=== PATIENT | female | born 1995 | race Caucasian/White ===

== ENCOUNTER 2017-09-17 22:53 | Emergency (ER) | payer OTHER ==
[~2017-09-17] VITALS: Ht 152.4 cm; Wt 70.5 kg
[~2017-09-17 22:53] MED LIST: IBUP-2071 PO
[2017-09-18 00:16] VITALS: BP 124/72
== END 2017-09-18 00:27 | disposition home or self-care (01) ==
LOC: EMS 22:54
DX: L89.309 Pressure ulcer of unspecified buttock, unspecified stage (principal)
CPT/HCPCS: 99281

== ENCOUNTER 2018-06-08 19:33 | Emergency (ER) | payer MEDICAID, OTHER ==
[~2018-06-08] VITALS: Ht 162.6 cm; Wt 50.0 kg
[2018-06-08 21:35] VITALS: BP 125/71
[2018-06-08] MEDS ORDERED: KETOROLAC TROMETHAMINE 30 MG/ML VIAL IM ONE (21:45)
[2018-06-08] MEDS ORDERED: PENICILLIN V POTASSIUM 500 MG TABLET PO ONE (21:45)
== END 2018-06-08 22:02 | disposition home or self-care (01) ==
LOC: EMS 19:34
DX: K08.89 Other specified disorders of teeth and supporting structures (principal); R22.0 Localized swelling, mass and lump, head; F17.210 Nicotine dependence, cigarettes, uncomplicated
CPT/HCPCS: 96372; 99283; 99406; J1885

== ENCOUNTER 2019-07-04 02:36 | Emergency (ER) | payer MEDICAID ==
[~2019-07-04] VITALS: Ht 162.6 cm; Wt 82.0 kg
[2019-07-04] MEDS ORDERED: [UNRECOGNIZED DRUG - OTHER] PO (02:42)
[2019-07-04] MEDS ORDERED: TETRACAINE HCL/PF 0.5% 4 ML OPHTHALMIC SOLUTION OU ONE (03:30)
[2019-07-04 04:00] VITALS: BP 124/70
== END 2019-07-04 04:09 | disposition home or self-care (01) ==
LOC: EMS 02:37
DX: H57.89 Other specified disorders of eye and adnexa (principal); F17.210 Nicotine dependence, cigarettes, uncomplicated

== ENCOUNTER 2019-07-30 01:23 | Emergency (ER) | payer SELFPAY ==
[~2019-07-30] VITALS: Ht 170.2 cm; Wt 81.8 kg
[~2019-07-30 01:23] MED LIST changes: -IBUP-2071 PO; +[UNRECOGNIZED DRUG - OTHER] PO
[2019-07-30] MEDS ORDERED: PROPARACAINE HCL 0.5% 15 ML OPHTHALMIC SOLUTION OU ONE (02:45)
[2019-07-30] MEDS ORDERED: FLUORESCEIN SODIUM 1 MG STRIP OD ONE (02:45)
[2019-07-30 03:00] VITALS: BP 131/77
[2019-07-30] MEDS ORDERED: MOXIFLOXACIN HCL 0.5% 3 ML OPHTHALMIC SOLUTION OS ONE (03:15)
[2019-07-30] MEDS ORDERED: IBUPROFEN 600 MG TABLET PO ONE (03:15)
== END 2019-07-30 03:30 | disposition home or self-care (01) ==
LOC: EMS 01:23
DX: S05.02XA Injury of conjunctiva and corneal abrasion without foreign body, left eye, initial encounter (principal); X58.XXXA Exposure to other specified factors, initial encounter; Y93.89 Activity, other specified; Y92.89 Other specified places as the place of occurrence of the external cause; Y99.8 Other external cause status

== ENCOUNTER 2020-05-01 18:59 | Emergency (ER) | payer OTHER ==
[~2020-05-01] VITALS: Ht 157.5 cm; Wt 86.4 kg
[2020-05-01 22:02] LABS: COVID AG,FIA SOURCE NASAL SWAB
[2020-05-01 23:31] VITALS: BP 118/78
== END 2020-05-01 23:39 | disposition home or self-care (01) ==
LOC: EMS 18:59
DX: U07.1 COVID-19 (principal); R09.81 Nasal congestion
CPT/HCPCS: 87426

== ENCOUNTER 2020-05-07 19:34 | Emergency (ER) | payer OTHER ==
[~2020-05-07] VITALS: Ht 157.5 cm; Wt 86.4 kg
[2020-05-07 20:40] LABS: COVID AG,FIA SOURCE NASOPHARYNGEAL
[2020-05-07 23:00] VITALS: BP 129/87
== END 2020-05-08 00:06 | disposition home or self-care (01) ==
LOC: EMS 19:34
DX: U07.1 COVID-19 (principal); R09.81 Nasal congestion
CPT/HCPCS: 87426; 99283; U0003

== ENCOUNTER 2020-05-12 17:45 | Emergency (ER) | payer OTHER ==
[~2020-05-12] VITALS: Ht 158.8 cm; Wt 86.4 kg
[2020-05-12] MEDS ORDERED: FLUORESCEIN SODIUM 1 MG STRIP OD ONE (19:15)
[2020-05-12 19:44] VITALS: BP 132/79
== END 2020-05-12 19:46 | disposition home or self-care (01) ==
LOC: EMS 17:45
DX: H10.9 Unspecified conjunctivitis (principal)

== ENCOUNTER 2021-05-12 12:42 | Emergency (ER) | payer OTHER ==
[~2021-05-12] VITALS: Ht 154.9 cm; Wt 86.4 kg
[2021-05-12 12:59] VITALS: BP 132/80
[2021-05-12 14:11] LABS: COVID AG,FIA SOURCE NASOPHARYNGEAL
== END 2021-05-12 14:30 | disposition home or self-care (01) ==
LOC: EMS 12:59
DX: U07.1 COVID-19 (principal)
CPT/HCPCS: 87426; 99283; U0003

== ENCOUNTER 2022-06-02 13:45 | Emergency (ER) | payer OTHER ==
[~2022-06-02] VITALS: Ht 157.5 cm; Wt 68.0 kg
[2022-06-02] MEDS ORDERED: ACETAMINOPHEN 500 MG TABLET PO ONE (14:00)
[2022-06-02 14:25] LABS: COVID AG,FIA SOURCE NASAL SWAB
[2022-06-02 14:37] VITALS: BP 115/76
[2022-06-02 14:38] LABS: RAPID GROUP A STREP NEGATIVE (NEGATIVE)
[2022-06-02] MEDS ORDERED: IBUPROFEN 600 MG TABLET PO ONE (14:45)
[2022-06-02 14:47] LABS: INFLUENZA TYPE A NEGATIVE FOR TYPE A (NEGATIVE); INFLUENZA TYPE B NEGATIVE FOR TYPE B (NEGATIVE)
[2022-06-02] MEDS ORDERED: ACET-66 PO (14:52)
[2022-06-02] MEDS ORDERED: IBUP-1554 PO (14:52)
[2022-06-02] MEDS ORDERED: GUAIFDM PO (14:52)
== END 2022-06-02 15:08 | disposition home or self-care (01) ==
LOC: EMS 13:47
DX: R06.9 Unspecified abnormalities of breathing (principal); Z20.822 Contact with and (suspected) exposure to COVID-19
CPT/HCPCS: 87430; 87804; 99283

== ENCOUNTER 2022-08-04 01:16 | Emergency (ER) | payer OTHER ==
[~2022-08-04] VITALS: Ht 154.9 cm; Wt 77.3 kg
[~2022-08-04 01:16] MED LIST changes: +ACET-66 PO; +GUAIFDM PO; +IBUP-1554 PO; -[UNRECOGNIZED DRUG - OTHER] PO
[2022-08-04 01:30] VITALS: BP 116/76
[2022-08-04] MEDS ORDERED: DEXAMETHASONE SOD PHOS 4 MG/ML 5 ML VIAL IVP ONE (03:00)
[2022-08-04] MEDS ORDERED: LORazepam 1 MG TABLET PO ONE (03:00)
[2022-08-04] MEDS ORDERED: KETOROLAC TROMETHAMINE 30 MG/ML VIAL IVP ONE (03:00)
[2022-08-04 03:41] LABS: APPEARANCE,URINE HAZY (CLEAR); BILIRUBIN,URINE NEGATIVE (NEGATIVE); GLUCOSE, URINE (UA) NEGATIVE (NEGATIVE); KETONES,URINE NEGATIVE (NEGATIVE); LEUKOCYTE ESTERASE ,URINE LARGE (NEGATIVE); NITRATE,URINE NEGATIVE (NEGATIVE); OCCULT BLOOD,URINE TRACE (NEGATIVE); PH,URINE 7.5 (5.0-8.0); PROTEIN,URINE 30-70 mg/dL (NEGATIVE)
[2022-08-04 03:46] LABS: BACTERIA,URINE Moderate /HPF (None Seen); RBC,URINE 0-2 /HPF (0-2); SQUAMOUS EPITHELIAL CELL,UR Few /LPF (None Seen); WBC,URINE 26-50 /HPF (0-5)
[2022-08-04] MEDS ORDERED: CEPHALEXIN MONOHYDRATE 500 MG CAPSULE PO ONE (04:15)
== END 2022-08-04 04:46 | disposition home or self-care (01) ==
LOC: EMS 01:18
DX: G43.909 Migraine, unspecified, not intractable, without status migrainosus (principal); N39.0 Urinary tract infection, site not specified; J45.909 Unspecified asthma, uncomplicated
CPT/HCPCS: 99284; 96374; 96375; 81001; 87086; 87186; J1100; J1885

== ENCOUNTER 2022-09-03 11:02 | Emergency (ER) | payer OTHER ==
[~2022-09-03] VITALS: Ht 167.6 cm; Wt 61.4 kg
[2022-09-03 11:05] VITALS: BP 122/83
== END 2022-09-03 11:58 | disposition home or self-care (01) ==
LOC: EMS 11:05
DX: L03.317 Cellulitis of buttock (principal); G43.909 Migraine, unspecified, not intractable, without status migrainosus; J45.909 Unspecified asthma, uncomplicated; Z32.01 Encounter for pregnancy test, result positive
CPT/HCPCS: 99281; Z7502

== ENCOUNTER 2022-10-28 22:30 | Emergency (ER) | payer OTHER ==
[~2022-10-28] VITALS: Ht 157.5 cm; Wt 77.3 kg
[2022-10-28 22:42] VITALS: TEMP 98.3
[2022-10-28 22:55] LABS: APPEARANCE,URINE CLEAR (CLEAR); BILIRUBIN,URINE NEGATIVE (NEGATIVE); GLUCOSE, URINE (UA) NEGATIVE (NEGATIVE); KETONES,URINE NEGATIVE (NEGATIVE); LEUKOCYTE ESTERASE ,URINE SMALL (NEGATIVE); NITRATE,URINE NEGATIVE (NEGATIVE); OCCULT BLOOD,URINE NEGATIVE (NEGATIVE); PROTEIN,URINE NEGATIVE (NEGATIVE); SPECIFIC GRAVITIY, URINE 1.009 (1.003-1.030); UROBILINOGEN,URINE <=1.0 mg/dL (<=1.0)
[2022-10-28] MEDS ORDERED: ACETAMINOPHEN 325 MG TABLET PO ONE (23:00)
[2022-10-28 23:09] LABS: BACTERIA,URINE Rare /HPF (None Seen); RBC,URINE None Seen /HPF (0-2); SQUAMOUS EPITHELIAL CELL,UR Few /LPF (None Seen)
[2022-10-29] MEDS ORDERED: CEPHALEXIN MONOHYDRATE 500 MG CAPSULE PO ONE (01:15)
[2022-10-29 01:25] VITALS: BP 124/86; PULSE 82; RESP 16
== END 2022-10-29 01:30 | disposition home or self-care (01) ==
LOC: EMS 22:32
DX: O23.41 Unspecified infection of urinary tract in pregnancy, first trimester (principal); N39.0 Urinary tract infection, site not specified; M54.50 Low back pain, unspecified; R07.89 Other chest pain; J45.909 Unspecified asthma, uncomplicated; G43.909 Migraine, unspecified, not intractable, without status migrainosus; Z98.890 Other specified postprocedural states; Z3A.13 13 weeks gestation of pregnancy
CPT/HCPCS: 76801; 76817; 81001; 99284; Z7502; Z7610

== ENCOUNTER 2022-11-12 22:03 | Emergency (ER) | payer OTHER ==
[~2022-11-12] VITALS: Ht 154.9 cm; Wt 72.0 kg
[2022-11-12 22:08] VITALS: BP 115/70; PULSE 94; RESP 16; TEMP 98.1
[2022-11-12] MEDS ORDERED: ONDA-104 PO (23:03)
[2022-11-12] MEDS ORDERED: ONDANSETRON HCL 4 MG/2 ML VIAL IVP ONE (23:15)
[2022-11-12] MEDS ORDERED: ACETAMINOPHEN 1000 MG/ISO-OSM 100 ML IV ONE (23:15)
[2022-11-12] MEDS ORDERED: SODIUM CHLORIDE 0.9% 1,000 ML IV ONE (23:15)
== END 2022-11-13 01:20 | disposition home or self-care (01) ==
LOC: EMS 23:01
DX: O26.892 Other specified pregnancy related conditions, second trimester (principal); G43.909 Migraine, unspecified, not intractable, without status migrainosus; J45.909 Unspecified asthma, uncomplicated; Z98.890 Other specified postprocedural states; Z3A.14 14 weeks gestation of pregnancy
CPT/HCPCS: 99284; 96365; 96375; J2405; J7030; J0131

== ENCOUNTER 2022-12-31 00:31 | Emergency (ER) | payer OTHER ==
[~2022-12-31] VITALS: Ht 154.9 cm; Wt 95.0 kg
[~2022-12-31 00:31] MED LIST changes: +ONDA-104 PO
[2022-12-31 00:54] VITALS: TEMP 98.4
[2022-12-31] MEDS ORDERED: ONDANSETRON HCL 4 MG/2 ML VIAL IVP ONE (01:45)
[2022-12-31] MEDS ORDERED: ACETAMINOPHEN 1000 MG/ISO-OSM 100 ML IV ONE (01:45)
[2022-12-31] MEDS ORDERED: SODIUM CHLORIDE 0.9% 1,000 ML IV ONE (01:45)
[2022-12-31] MEDS ORDERED: SUMA100T21 PO (01:50)
[2022-12-31 02:12] LABS: APPEARANCE,URINE HAZY (CLEAR); BILIRUBIN,URINE NEGATIVE (NEGATIVE); GLUCOSE, URINE (UA) NEGATIVE (NEGATIVE); KETONES,URINE NEGATIVE (NEGATIVE); LEUKOCYTE ESTERASE ,URINE LARGE (NEGATIVE); NITRATE,URINE POSITIVE (NEGATIVE); OCCULT BLOOD,URINE LARGE (NEGATIVE); PH,URINE 6.5 (5.0-8.0); PROTEIN,URINE TRACE mg/dL (NEGATIVE); SPECIFIC GRAVITIY, URINE 1.013 (1.003-1.030); UROBILINOGEN,URINE <=1.0 mg/dL (<=1.0)
[2022-12-31] MEDS ORDERED: CEPH-558 PO (02:19)
[2022-12-31 02:26] LABS: BACTERIA,URINE Many /HPF (None Seen); SQUAMOUS EPITHELIAL CELL,UR Many /LPF (None Seen); WBC,URINE 26-50 /HPF (0-5)
[2022-12-31] MEDS ORDERED: CEPHALEXIN MONOHYDRATE 500 MG CAPSULE PO ONE (02:30)
[2022-12-31 03:00] VITALS: BP 125/83; PULSE 90; RESP 18
== END 2022-12-31 03:01 | disposition home or self-care (01) ==
LOC: EMS 00:32
DX: O26.892 Other specified pregnancy related conditions, second trimester (principal); G43.909 Migraine, unspecified, not intractable, without status migrainosus; J45.909 Unspecified asthma, uncomplicated; Z98.890 Other specified postprocedural states
CPT/HCPCS: 99284; 96365; 96375; 81001; 87086; 87186; J2405; J0131

== ENCOUNTER 2023-02-03 00:30 | Emergency (ER) | payer OTHER ==
[~2023-02-03] VITALS: Ht 157.5 cm; Wt 89.0 kg
[~2023-02-03 00:30] MED LIST changes: +CEPH-558 PO; +SUMA100T21 PO
[2023-02-03] MEDS ORDERED: ONDANSETRON HCL 4 MG/2 ML VIAL IVP ONE (02:15)
[2023-02-03] MEDS ORDERED: ACETAMINOPHEN 500 MG/ISO-OSM 50 ML IV ONE (02:15)
[2023-02-03] MEDS ORDERED: SODIUM CHLORIDE 0.9% 1,000 ML IV ONE (02:15)
[2023-02-03 03:38] VITALS: BP 124/68; PULSE 71; RESP 17; TEMP 97.3
== END 2023-02-03 03:48 | disposition home or self-care (01) ==
LOC: EMS 00:32
DX: O26.892 Other specified pregnancy related conditions, second trimester (principal); G43.909 Migraine, unspecified, not intractable, without status migrainosus; J45.909 Unspecified asthma, uncomplicated; Z98.890 Other specified postprocedural states; Z3A.00 Weeks of gestation of pregnancy not specified
CPT/HCPCS: 99284; 96365; 96375; J2405; J7030; J0131

== ENCOUNTER 2023-02-20 20:20 | Emergency (ER) | payer OTHER ==
[~2023-02-20] VITALS: Ht 154.9 cm; Wt 95.0 kg
[2023-02-20 21:03] VITALS: TEMP 98
[2023-02-20] MEDS ORDERED: SODIUM CHLORIDE 0.9% 1,000 ML IV ONE (21:30)
[2023-02-20 22:04] LABS: BASOPHILS % (AUTO) 0.3 % (0.0-2.0); HEMATOCRIT 31.7 % (36-46); HEMOGLOBIN 11.2 g/dL (12.0-16.0); LYMPHOCYTES # (AUTO) 3.1 K/uL (1.0-4.8); LYMPHOCYTES % (AUTO) 25.8 % (22.0-44.0); MEAN CORPUSCULAR HEMOGLOBIN 32.4 pg (26.0-34.0); MEAN CORPUSCULAR HGB CONC 35.3 G/dL (31.0-37.0); MEAN CORPUSCULAR VOLUME 92 fL (80-100); MONOCYTES # (AUTO) 0.6 K/uL (0.1-1.0); MONOCYTES % (AUTO) 5.2 % (2.0-9.0); NEUTROPHILS # (AUTO) 8.2 K/uL (1.8-7.7); NEUTROPHILS % (AUTO) 67.7 % (40.0-70.0); PLATELET COUNT (AUTO) 320 K/uL (150-450); RED BLOOD CELL COUNT(AUTO) 3.45 MIL/uL (4.00-5.20); RED CELL DISTRIBUTION WIDTH 13.3 % (11.5-14.5); WHITE BLOOD COUNT (AUTO) 12.1 K/uL (4.5-11.0)
[2023-02-20 22:15] LABS: ANION GAP 11 mmol/L (8-16); CALCIUM, TOTAL 8.4 mg/dL (8.8-10.5); CARBON DIOXIDE 21 mmol/L (22-29); CHLORIDE 102 mmol/L (98-107); CREATININE 0.51 mg/dL (0.60-1.30); GLOMERULAR FILTR. RATE CALC > 60 mL/min (>60); GLUCOSE,RANDOM 108 mg/dL (70-110); POTASSIUM 3.5 mmol/L (3.5-5.1); SODIUM SERUM 134 mmol/L (136-145); UREA NITROGEN, BLOOD 4 mg/dL (7-18)
[2023-02-20] MEDS ORDERED: KETOROLAC TROMETHAMINE 30 MG/ML VIAL IVP ONE (22:15)
[2023-02-20] MEDS ORDERED: ONDANSETRON HCL 4 MG/2 ML VIAL IVP ONE (22:15)
[2023-02-20 22:19] LABS: ALANINE AMINOTRANSFERASE 15 U/L (12-78); ALBUMIN 2.2 g/dL (3.4-5.0); ALKALINE PHOSPHATASE 64 U/L (46-116); ASPARTATE AMINOTRANSFERASE 8 U/L (15-37); BILIRUBIN,TOTAL 0.2 mg/dL (0.1-1.0); TOTAL PROTEIN, SERUM 6.3 g/dL (6.4-8.2)
[2023-02-20] MEDS ORDERED: ACETAMINOPHEN 1000 MG/ISO-OSM 100 ML IV ONE (23:15)
[2023-02-21 00:02] VITALS: BP 120/86; PULSE 78; RESP 16
== END 2023-02-21 00:33 | disposition home or self-care (01) ==
LOC: EMS 20:21
DX: O26.893 Other specified pregnancy related conditions, third trimester (principal); G43.909 Migraine, unspecified, not intractable, without status migrainosus; J45.909 Unspecified asthma, uncomplicated; Z98.890 Other specified postprocedural states
CPT/HCPCS: 99284; 96365; 96375; 96361; 80053; 84703; 85025; 36415; J1885; J2405; J7030; J0131

== ENCOUNTER 2023-02-24 17:23 | Emergency (ER) | payer OTHER ==
[~2023-02-24] VITALS: Ht 152.4 cm; Wt 95.0 kg
[2023-02-24 17:26] VITALS: TEMP 98
[2023-02-24] MEDS ORDERED: SODIUM CHLORIDE 0.9% 1,000 ML IV ONE (20:00)
[2023-02-24] MEDS ORDERED: METOCLOPRAMIDE HCL 5 MG/ML 2 ML VIAL IVP ONE (20:00)
[2023-02-24] MEDS ORDERED: MORPHINE SULFATE 2 MG/ML SYRINGE IVP ONE (20:00)
[2023-02-24] MEDS ORDERED: PREN-226 PO (20:06)
[2023-02-24 21:01] LABS: BASOPHILS % (AUTO) 0.4 % (0.0-2.0); EOSINOPHILS % (AUTO) 1.2 % (1.0-6.0); HEMATOCRIT 32.3 % (36-46); HEMOGLOBIN 11.5 g/dL (12.0-16.0); LYMPHOCYTES # (AUTO) 2.9 K/uL (1.0-4.8); LYMPHOCYTES % (AUTO) 25.4 % (22.0-44.0); MEAN CORPUSCULAR HEMOGLOBIN 32.7 pg (26.0-34.0); MEAN CORPUSCULAR HGB CONC 35.6 G/dL (31.0-37.0); MEAN CORPUSCULAR VOLUME 92 fL (80-100); MONOCYTES # (AUTO) 0.7 K/uL (0.1-1.0); NEUTROPHILS # (AUTO) 7.8 K/uL (1.8-7.7); PLATELET COUNT (AUTO) 320 K/uL (150-450); RED BLOOD CELL COUNT(AUTO) 3.52 MIL/uL (4.00-5.20); RED CELL DISTRIBUTION WIDTH 13.2 % (11.5-14.5); WHITE BLOOD COUNT (AUTO) 11.6 K/uL (4.5-11.0)
[2023-02-24 21:12] LABS: ANION GAP 13 mmol/L (8-16); CALCIUM, TOTAL 8.8 mg/dL (8.8-10.5); CARBON DIOXIDE 20 mmol/L (22-29); CHLORIDE 102 mmol/L (98-107); CREATININE 0.57 mg/dL (0.60-1.30); GLOMERULAR FILTR. RATE CALC > 60 mL/min (>60); GLUCOSE,RANDOM 100 mg/dL (70-110); POTASSIUM 3.8 mmol/L (3.5-5.1); SODIUM SERUM 135 mmol/L (136-145); UREA NITROGEN, BLOOD 6 mg/dL (7-18)
[2023-02-24 21:18] LABS: ALANINE AMINOTRANSFERASE 14 U/L (12-78); ALBUMIN 2.3 g/dL (3.4-5.0); ALKALINE PHOSPHATASE 71 U/L (46-116); ASPARTATE AMINOTRANSFERASE 10 U/L (15-37); BILIRUBIN,TOTAL 0.2 mg/dL (0.1-1.0); TOTAL PROTEIN, SERUM 6.6 g/dL (6.4-8.2)
[2023-02-24] MEDS ORDERED: HALOPERIDOL LACTATE 5 MG/ML VIAL IVP ONE (21:30)
[2023-02-24 22:05] VITALS: BP 119/69; PULSE 80; RESP 18
== END 2023-02-24 22:17 | disposition home or self-care (01) ==
LOC: EMS 17:23
DX: G43.909 Migraine, unspecified, not intractable, without status migrainosus (principal); J45.909 Unspecified asthma, uncomplicated; Z98.890 Other specified postprocedural states
CPT/HCPCS: 99284; 96374; 96375; 96361; 80053; 85025; 36415; J1630; J2765; J2270; J7030

== ENCOUNTER 2023-06-08 23:25 | Emergency (ER) | payer OTHER ==
[~2023-06-08] VITALS: Ht 154.9 cm; Wt 88.6 kg
[~2023-06-08 23:25] MED LIST changes: -CEPH-558 PO; -GUAIFDM PO; -IBUP-1554 PO; -ONDA-104 PO; +PREN-226 PO
[2023-06-08 23:28] VITALS: TEMP 98.9
[2023-06-09 01:29] VITALS: BP 124/80; PULSE 62; RESP 18
[2023-06-09] MEDS ORDERED: AMOX1TAB16 PO (01:39)
[2023-06-09] MEDS ORDERED: IBUP-1492 PO (01:39)
[2023-06-09] MEDS ORDERED: KETOROLAC TROMETHAMINE 30 MG/ML VIAL IM ONE (01:45)
[2023-06-09] MEDS ORDERED: AMOX TR/POT CLAV 875 MG/125 MG TABLET PO ONE (01:45)
== END 2023-06-09 02:00 | disposition home or self-care (01) ==
LOC: EMS 23:25
DX: K08.89 Other specified disorders of teeth and supporting structures (principal); G43.909 Migraine, unspecified, not intractable, without status migrainosus; J45.909 Unspecified asthma, uncomplicated; Z98.890 Other specified postprocedural states
CPT/HCPCS: 99283; 84703; 96372; J1885

== ENCOUNTER 2023-10-26 21:24 | Emergency (ER) | payer OTHER ==
[~2023-10-26] VITALS: Ht 154.9 cm; Wt 94.1 kg
[~2023-10-26 21:24] MED LIST changes: +AMOX-457 PO; +IBUP-1492 PO
[2023-10-26] MEDS: ACETAMINOPHEN 325 MG TABLET PO ONE (23:56)
[2023-10-26] MEDS: KETOROLAC TROMETHAMINE 30 MG/ML VIAL IM ONE (23:56)
[2023-10-26 23:58] LABS: MONOCYTES # (AUTO) 1.1 K/uL (0.1-1.0)
[2023-10-27 00:01] LABS: BASOPHILS % (AUTO) 0.8 % (0.0-2.0); EOSINOPHILS % (AUTO) 1.3 % (1.0-6.0); HEMATOCRIT 45.6 % (36-46); HEMOGLOBIN 15.7 g/dL (12.0-16.0); LYMPHOCYTES # (AUTO) 6.5 K/uL (1.0-4.8); LYMPHOCYTES % (AUTO) 36.5 % (22.0-44.0); MEAN CORPUSCULAR HEMOGLOBIN 30.4 pg (26.0-34.0); MEAN CORPUSCULAR HGB CONC 34.4 G/dL (31.0-37.0); MEAN CORPUSCULAR VOLUME 88 fL (80-100); MONOCYTES % (AUTO) 6.3 % (2.0-9.0); NEUTROPHILS # (AUTO) 9.9 K/uL (1.8-7.7); NEUTROPHILS % (AUTO) 55.1 % (40.0-70.0); PLATELET COUNT (AUTO) 467 K/uL (150-450); RED BLOOD CELL COUNT(AUTO) 5.15 MIL/uL (4.00-5.20); RED CELL DISTRIBUTION WIDTH 13.1 % (11.5-14.5); WHITE BLOOD COUNT (AUTO) 17.9 K/uL (4.5-11.0)
[2023-10-27 00:13] LABS: ANION GAP 7 mmol/L (8-16); CALCIUM, TOTAL 9.7 mg/dL (8.8-10.5); CARBON DIOXIDE 29 mmol/L (22-29); CHLORIDE 102 mmol/L (98-107); CREATININE 0.77 mg/dL (0.60-1.30); GLOMERULAR FILTR. RATE CALC > 60 mL/min (>60); GLUCOSE,RANDOM 96 mg/dL (70-110); POTASSIUM 3.9 mmol/L (3.5-5.1); SODIUM SERUM 138 mmol/L (136-145); UREA NITROGEN, BLOOD 8 mg/dL (7-18)
[2023-10-27 00:59] LABS: COVID AG,FIA SOURCE NASAL SWAB
[2023-10-27 01:00] VITALS: BP 119/72; PULSE 85; RESP 16; TEMP 97.9
[2023-10-27 01:00] LABS: APPEARANCE,URINE TURBID (CLEAR); BILIRUBIN,URINE NEGATIVE (NEGATIVE); COLOR,URINE YELLOW (YELLOW); GLUCOSE, URINE (UA) NEGATIVE (NEGATIVE); KETONES,URINE NEGATIVE (NEGATIVE); LEUKOCYTE ESTERASE ,URINE LARGE (NEGATIVE); NITRATE,URINE NEGATIVE (NEGATIVE); OCCULT BLOOD,URINE SMALL (NEGATIVE); PH,URINE 6.5 (5.0-8.0); PROTEIN,URINE 100-200,SEE CONFIRM mg/dL (NEGATIVE); SPECIFIC GRAVITIY, URINE 1.018 (1.003-1.030); UROBILINOGEN,URINE <=1.0 mg/dL (<=1.0)
[2023-10-27 01:18] LABS: SARS-COV2 (COVID) ANTIGEN,FIA Negative (Negative)
[2023-10-27 01:19] LABS: WBC,URINE Full Field /HPF (0-5)
[2023-10-27 01:20] LABS: BACTERIA,URINE Moderate /HPF (None Seen); INFLUENZA TYPE A NEGATIVE FOR TYPE A (NEGATIVE); INFLUENZA TYPE B NEGATIVE FOR TYPE B (NEGATIVE); SQUAMOUS EPITHELIAL CELL,UR Moderate /LPF (None Seen); SULFOSALICYLIC ACID,URINE 4+ (Negative)
[2023-10-27] MEDS ORDERED: CEPH-558 PO (02:08)
[2023-10-27] MEDS: CEPHALEXIN MONOHYDRATE 500 MG CAPSULE PO ONE (02:16)
== END 2023-10-27 02:21 | disposition home or self-care (01) ==
LOC: EMS 21:25
DX: N39.0 Urinary tract infection, site not specified (principal); J45.909 Unspecified asthma, uncomplicated; Z98.890 Other specified postprocedural states; Z20.822 Contact with and (suspected) exposure to COVID-19
CPT/HCPCS: 99285; 71045; 87426; 80048; 81001; 84703; 85025; 87804; 36415; 87086; 87186; 93005; 96372; J1885; 81002

== ENCOUNTER 2024-01-12 16:08 | Emergency (ER) | payer OTHER ==
[~2024-01-12] VITALS: Ht 154.9 cm; Wt 95.5 kg
[~2024-01-12 16:08] MED LIST changes: +CEPH-558 PO
[2024-01-12 16:18] VITALS: BP 118/91; PULSE 82; RESP 18; TEMP 98.2; O2SAT 99
[2024-01-12 16:52] LABS: APPEARANCE,URINE HAZY (CLEAR); BILIRUBIN,URINE NEGATIVE (NEGATIVE); COLOR,URINE YELLOW (YELLOW); GLUCOSE, URINE (UA) NEGATIVE (NEGATIVE); KETONES,URINE NEGATIVE (NEGATIVE); LEUKOCYTE ESTERASE ,URINE LARGE (NEGATIVE); NITRATE,URINE NEGATIVE (NEGATIVE); OCCULT BLOOD,URINE LARGE (NEGATIVE); PH,URINE 6.5 (5.0-8.0); PROTEIN,URINE 30-70 mg/dL (NEGATIVE); SPECIFIC GRAVITIY, URINE 1.018 (1.003-1.030); UROBILINOGEN,URINE <=1.0 mg/dL (<=1.0)
[2024-01-12 16:58] LABS: HCG,QUAL URINE NEGATIVE (NEGATIVE)
[2024-01-12 17:15] LABS: BACTERIA,URINE Few /HPF (None Seen)
[2024-01-12] MEDS: CEPHALEXIN MONOHYDRATE 500 MG CAPSULE PO ONE (21:10)
[2024-01-12] MEDS ORDERED: CEPH-558 PO (21:20)
[2024-01-12] MEDS ORDERED: ACET-3385 PO (21:20)
== END 2024-01-12 21:43 | disposition home or self-care (01) ==
LOC: EMS 16:08
DX: N39.0 Urinary tract infection, site not specified (principal); J45.909 Unspecified asthma, uncomplicated; G43.909 Migraine, unspecified, not intractable, without status migrainosus; Z98.890 Other specified postprocedural states
CPT/HCPCS: 81001; 84703; 87086; 87186; 99283